=== PATIENT | female | born 2000 | race Caucasian/White ===

== ENCOUNTER 2021-03-16 11:17 | Emergency (ER) | payer OTHER ==
[~2021-03-16] VITALS: Ht 157.5 cm; Wt 87.1 kg
[2021-03-16 11:18] VITALS: BP 152/76
--- NOTE | 2021-03-16 11:40 | NUR ---
PATIENT AMBUALTED TO RESTROOM, GAIT STEADY
--- NOTE | 2021-03-16 11:47 | NUR ---
PATIENT RETURNED TO ROOM. PATIENT PROVIDED UA
--- NOTE | 2021-03-16 11:52 | NUR ---
LAB BEDSIDE DRAWING LAB WORK
--- NOTE | 2021-03-16 12:03 | NUR ---
20 FEMALE WITH C/O VAGINAL BLEEDING, LOWER ABDOMINAL PAIN X 12 HOURS. 9 WEEKS . STATES HAD BLOOD CLOTS AT 0100 03/16/21 WHEN URINATING. FELT DISCOMFORT/CRAMPING WHEN AROUND 0100, BUT STATES DISCOMFORT HAS RESOLVED ITSELF. LMP 01/08/21. PMH: KATYIES DC
--- NOTE | 2021-03-16 12:24 | NUR ---
US at pt bedside.
[2021-03-16 12:29] LABS: BASOPHILS % (AUTO) 0.5 % (0.0-2.0); EOSINOPHILS % (AUTO) 0.4 % (0.0-4.0); HEMATOCRIT 35.9 % (36-48); HEMOGLOBIN 12.1 g/dL (12.0-16.0); LYMPHOCYTES # (AUTO) 0.9 K/uL (2.5-16.5); LYMPHOCYTES % (AUTO) 26.3 % (20.5-51.1); MEAN CORPUSCULAR HEMOGLOBIN 28 pg (27-31); MEAN CORPUSCULAR HGB CONC 34 g/dL (33-37); MEAN CORPUSCULAR VOLUME 84.2 fL (80-94); MONOCYTES # (AUTO) 0.3 K/uL (0.8-1.0); MONOCYTES % (AUTO) 8.2 % (1.7-9.3); NEUTROPHILS # (AUTO) 2.2 K/uL (1.8-7.7); NEUTROPHILS % (AUTO) 64.6 % (42.2-75.2); PLATELET COUNT (AUTO) 159 K/uL (140-450); RED BLOOD CELL COUNT(AUTO) 4.26 MIL/uL (4.20-5.40); RED CELL DISTRIBUTION WIDTH 13.9 % (11.6-13.7); WHITE BLOOD COUNT (AUTO) 3.5 K/uL (4.8-10.8)
[2021-03-16 12:33] LABS: ANION GAP 17.1 (8-16); CARBON DIOXIDE 23.7 mmol/L (21-32); CREATININE 0.6 mg/dL (0.6-1.3); POTASSIUM 3.8 mmol/L (3.5-5.1)
[2021-03-16] MEDS ORDERED: ACETAMINOPHEN 325 MG TAB PO ONE (14:15)
[2021-03-16 14:45] VITALS: BP 126/69
--- NOTE | 2021-03-16 14:46 | NUR ---
Patient discharged with v/s stable. Written and verbal after care instructions given and explained. Patient verbalized understanding. Ambulatory with steady gait. All questions addressed prior to discharge. Advised to follow up with PMD.
== END 2021-03-16 14:46 | disposition home or self-care (01) ==
LOC: MED 11:17
DX: O03.4 Incomplete spontaneous abortion without complication (principal); Z3A.09 9 weeks gestation of pregnancy
CPT/HCPCS: 36415; 76801; 76817; 80048; 81002; 81025; 84702; 85025; 86900; 86901; 99285

== ENCOUNTER 2022-04-08 15:25 | Emergency (ER) | payer OTHER ==
[~2022-04-08] VITALS: Ht 157.5 cm; Wt 89.4 kg
[2022-04-08 15:34] VITALS: BP 133/70
--- NOTE | 2022-04-08 15:44 | NUR ---
Ilan rodriguez in [facility] - 04/08/22 at 1544 by [id number] CBIB SELF /O 01/28 PAINFUL URINATION, LOWER ABD PAIN, LOWER BACK PAIN X 2 DAYS.
--- NOTE | 2022-04-08 15:45 | NUR ---
BIB SELF C/O 5/10 PAINFUL URINATION, LOWER ABD PAIN, LOWER BACK PAIN X 2 DAYS.
[2022-04-08 16:59] LABS: BILIRUBIN,URINE NEGATIVE (NEGATIVE); BLOOD, URINE NEGATIVE (NEGATIVE); COLOR,URINE YELLOW (YELLOW); LEUKOCYTE ESTERASE ,URINE TRACE (NEGATIVE); NITRITE, URINE NEGATIVE (NEGATIVE); UGLUCOSE NEGATIVE (NEGATIVE)
[2022-04-08 17:13] LABS: APPEARANCE,URINE HAZY (CLEAR); RBC,URINE NONE SEEN /HPF (0-5)
[2022-04-08] MEDS ORDERED: NITR100C7 PO (17:40)
[2022-04-08 17:45] VITALS: BP 132/88
== END 2022-04-08 17:48 | disposition home or self-care (01) ==
LOC: MED 15:25
DX: N39.0 Urinary tract infection, site not specified (principal); F41.9 Anxiety disorder, unspecified
CPT/HCPCS: 81001; 81025; 87086; 99283

== ENCOUNTER 2022-05-08 15:24 | Emergency (ER) | payer OTHER ==
[~2022-05-08] VITALS: Ht 157.5 cm; Wt 88.1 kg
[~2022-05-08 15:24] MED LIST: NITR100C7 PO
[2022-05-08 15:26] VITALS: BP 130/94
--- NOTE | 2022-05-08 15:58 | NUR ---
Pepe bajwa at bedside for evaluation
--- NOTE | 2022-05-08 16:15 | NUR ---
22 y/o female c/o abdominal pain x 1mo worsening in last 2 days along with nausea. Pain reported at 5/10 described as "fullness" that radiates to lower back, guarding noted with palpation to hypogastric region. Also, c/o urinary urgency with difficulty emptying bladder. Abdomen is soft, flat, non-tender. Bowel sounds active x 4. Denies fever, chills, vomiting, hematuria, dysuria. Was seen by PCP 2 days ago and given Cipro for UTI. Took ibuprofen at home with temporary relief. nka pmh: denies
[2022-05-08] MEDS ORDERED: ACETAMINOPHEN EXTRA STRENGTH 500 MG TAB PO ONE (16:25)
--- NOTE | 2022-05-08 16:35 | NUR ---
URINE SAMPLE WALKED TO LAB
--- NOTE | 2022-05-08 16:39 | NUR ---
pt ambulated to restroom with steady gait
[2022-05-08] MEDS ORDERED: PYR100 PO (16:48)
[2022-05-08] MEDS ORDERED: IBUP-2213 PO (16:48)
--- NOTE | 2022-05-08 17:06 | NUR ---
Patient discharged with v/s stable. Written and verbal after care instructions about urinary incontinence, urinary frequency given and explained. Patient alert, oriented and verbalized understanding of instructions. Ambulatory with steady gait. All questions addressed prior to discharge. ID band removed. Patient advised to follow up with PMD. Rx of Pyridium, Ibuprofen given. Patient educated on indication of medication including possible reaction and side effects. Opportunity to ask questions provided and answered.
== END 2022-05-08 17:06 | disposition home or self-care (01) ==
LOC: MED 15:24
DX: R30.0 Dysuria (principal)
CPT/HCPCS: 81002; 81025; 87086; 99284